=== PATIENT | female | born 1950 | race Caucasian/White ===

== ENCOUNTER 2016-11-20 09:15 | Emergency (ER) | payer MEDICARE, MEDICAID ==
[2016-11-20 09:26] VITALS: BP 117/85
[2016-11-20] MEDS ORDERED: NORMAL SALINE 1,000 ML in NORMAL SALINE 1,000 ML IV ONE (09:55)
[2016-11-20] MEDS ORDERED: ALBUTEROL SULFATE/IPRATROPIUM 3 ML NEBU IH ONE ×2 (09:55→10:25)
[2016-11-20] MEDS ORDERED: KETOROLAC TROMETHAMINE 30 MG/ML VIAL IV ONE (09:55)
[2016-11-20] MEDS ORDERED: METHYLPREDNISOLONE SOD SUCC/PF 40 MG/ML VIAL IV ONE (09:55)
[2016-11-20 10:16] LABS: Mean Cell Volume 86.9 fl (78-100); Mean Corpuscular Hgb Conc 33.3 g/dl (32-36); Mean Platelet Volume 8.2 fl (6.0-9.5); Neutrophil # 4.7 K/mm3 (1.3-6.0); Neutrophil % 67.2 % (42-75.0); Platelet Count 486 K/mm3 (150-450); Red Blood Count 5.18 M/mm3 (4.2-5.4); Red Cell Distribution Width 12.7 % (11.5-14.0)
--- NOTE | 2016-11-20 10:16 | ERNOTE ---
Medical Problem HPI - Narrative Date of Service: 11/20/16 - General Chief Complaint: General Assessment Time Seen by Provider: 11/20/16 09:48 Source: patient - Immun/Allergies/Home Medications Immunizations: IMMUNIZATION HX History of Influenza Vaccine Yes Allergies/Adverse Reactions: Allergies Penicillins Allergy (Severe, Verified 11/20/16 09:26) Swelling of Tongue and throat latex Adverse Reaction (Mild, Verified 11/20/16 09:26) rash morphine Adverse Reaction (Mild, Verified 11/20/16 09:26) does not work cat gut sutures Adverse Reaction (Mild, Uncoded 11/20/16 09:26) abcess novacaine Adverse Reaction (Mild, Uncoded 11/20/16 09:26) does not work Home Medications: HOME MEDICATIONS Aspirin [Aspirin Enteric Coated] 81 mg PO DAILY 02/18/14 [Last Taken Unknown] Cyclobenzaprine HCl [Flexeril] 10 mg PO BID 02/18/14 [Last Taken Unknown] Tiotropium [place] [Spiriva] 1 cap IH DAILY 02/18/14 [Last Taken Unknown] Tramadol HCl [Ultram] 100 mg PO Q4H PRN 02/18/14 [Last Taken Unknown] Blood Sugar Diagnostic, Drum [Accu-Chek Compact] 1 each MC DAILY 10/17/15 [Last Taken Unknown] Calcium Carbonate/Vitamin D3 [Calcium 600 + Vit D 400 Tablet] 1 each PO DAILY [Last Taken Unknown] Fluticasone/Salmeterol [Advair 500-50 Diskus] 1 puff IH BID 10/17/15 [Last Taken Unknown] Levothyroxine Sodium [Synthroid] 50 mcg PO DAILY 10/17/15 [Last Taken Unknown] Montelukast Sodium [Singulair] 10 mg PO DAILY 10/17/15 [Last Taken Unknown] Nabumetone 750 mg PO BID 10/17/15 [Last Taken Unknown] Omeprazole [Prilosec] 40 mg PO DAILY 10/17/15 [Last Taken Unknown] metFORMIN HCL [Glucophage] 500 mg PO BIDWM 10/17/15 [Last Taken Unknown] Doxycycline Monohydrate 100 mg PO BID #20 tablet 11/20/16 [Last Taken Unknown] - History of Present History Narrative: Pt complains of general malaise. She has been fighting a tooth infection and she feels it is wearing her down. Pt has a chronic cough, but continues to smoke about a PPD of cigarettes. Timing: intermittent Severity: moderate Review of Systems - Review of Systems Constitutional: Present: malaise EYE: Present: no symptoms reported ENT: Present: other - chronic lower molar pain Respiratory: Present: cough, wheezing Cardiology: Present: no symptoms reported Gastrointestinal/Abdominal: Present: no symptoms reported Genitourinary: Present: no symptoms reported Musculoskeletal: Present: no symptoms reported Skin: Present: no symptoms reported Neurological: Present: no symptoms reported Endocrine: Present: no symptoms reported Hematologic/Lymphatic: Present: no symptoms reported Psych: Present: no symptoms reported - Patient's Past Medical History Patient History - Medical: Diabetes Type 2, GERD, Headache, Hypothyroidism, Osteoarthritis, Other Patient History - Cardiac/Respiratory: COPD Patient History - Cancer: No Hx of Cancer Patient History - Surgical Procedures: Appendectomy, Colonoscopy, EGD, Hysterectomy, T & A, Other - Social History Living Situations: home Smoking Status: Current every day smoker Alcohol Use: none Drug Use: other Physical Exam - Physical Exam General Appearance: Present: wd/wn, alert, mild distress Eye Exam: Normal inspection: bilateral, PERRL: bilateral Ears, Nose, Throat: Present: hearing grossly normal, normal pharynx, other - lower molar edema and tenderness Neck: Present: normal inspection, nontender Respiratory: Present: no accessory muscle use, chest nontender, wheezing, other - fine coarse breath sounds throughout Cardiovascular/Chest: Present: regular rate, rhythm, no murmur, normal peripheral pulses Gastrointestinal/Abdominal: Present: normal bowel sounds, nontender, nondistended, soft, no organomegaly Rectal Exam: Present: deferred Back Exam: Present: normal inspection, normal range of motion Extremity Exam: Present: normal inspection, non-tender, no edema, normal range of motion Neurological Exam: Present: alert, oriented, normal mood/affect Skin Exam: Present: normal color, warm/dry Lymphatic Exam: Present: no adenopathy ED Progress - Results and Orders Patient's Lab Results:: I have reviewed the patient's lab results. - Vital Signs Patient's Vital Signs:: I have reviewed the patient's vital signs. Vital Signs: Vital Signs 11/20/16 09:20 Temperature 36.3 C L Pulse Rate 77 Respiratory 12 Rate Blood Pressure 117/85 O2 Sat by Pulse 97 Oximetry - X-Ray X-Ray #1 X-Ray: chest Interpretation: Reviewed by me - Progress/Reassessment Chief Complaint: General Assessment Progress:: Improved - Transfer of Care Expected Disposition: Discharge Plan - Plan Plan: Pt may need to consider stopping smoking, but she does not feel that she can. We talked about smoking cessation and she declines at this time. Departure - Departure Clinical Impression: COPD (chronic obstructive pulmonary disease), Diabetes, Nicotine addiction Instructions: Chronic Obstructive Pulmonary Disease, [id number], Smoking Cessation, Tips for Success, [id number], Type 2 Diabetes Mellitus, Adult, Easy -to-Read Referrals: Collin Randall MD [Primary Care Provider] - Prescriptions: Doxycycline Monohydrate 100 mg PO BID #20 tablet
[2016-11-20 10:24] LABS: ALT 16 U/L (19-67); AST 7 U/L (0-48); Albumin * 3.9 gm/dl (3.4-5.0); Alkaline Phosphatase * 57 U/L (50-170); Anion Gap 17.3 mmol/L (6.8-13.8); Bilirubin, Total 0.4 mg/dL (0.0-1.1); Blood Urea Nitrogen 16 mg/dL (3-23); Ca. Corrected For Albumin 9.2 mg/dL (8.4-10.2); Calcium * 9.4 mg/dL (7.9-10.9); Carbon Dioxide 22.8 mmol/L (24-32.6); Chloride 103 mmol/L (97-106); Glucose * 127 mg/dL (70-110); Magnesium 2.1 mg/dL (1.2-2.8); Potassium 4.1 mmol/L (3.4-4.6); Sodium 139 mmol/L (132-142); Total Protein 7.2 gm/dL (6.2-8.2)
[2016-11-20] MEDS ORDERED: KETOROLAC TROMETHAMINE 30 MG/ML VIAL ONE (10:25)
[2016-11-20] MEDS ORDERED: METHYLPREDNISOLONE SOD SUCC/PF 40 MG/ML VIAL ONE (10:25)
[2016-11-20 10:34] LABS: Urine Bilirubin Negative (NEGATIVE); Urine Blood Negative /ul (NEGATIVE); Urine Ketone Negative (NEGATIVE); Urine Nitrite Negative (NEGATIVE); Urine Protein Negative (NEGATIVE); Urine Urobilinogen Normal (NORMAL); Urine pH 5.5 pH (5.0-7.0)
[2016-11-20 10:44] LABS: Urine Appearance Clear; Urine Bacteria None Seen; Urine Color Yellow; Urine RBC None Seen /hpf (0-5); Urine WBC None Seen /hpf (0-5)
== END 2016-11-20 12:23 | disposition home or self-care (01) ==
LOC: ER 09:15
DX: J44.9 Chronic obstructive pulmonary disease, unspecified (principal); F17.210 Nicotine dependence, cigarettes, uncomplicated; E11.9 Type 2 diabetes mellitus without complications; Z90.710 Acquired absence of both cervix and uterus; K21.9 Gastro-esophageal reflux disease without esophagitis; E03.9 Hypothyroidism, unspecified; Z79.4 Long term (current) use of insulin

== ENCOUNTER 2017-04-08 01:23 | Observation (INO) | payer MEDICARE, MEDICAID ==
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
[2017-04-08 01:56] LABS: Hematocrit 40.1 % (37.0-47.0); Hemoglobin 13.5 gm/dL (12.5-16.0); Mean Cell Volume 87.4 fl (78-100); Mean Corpuscular Hemoglobin 29.4 pg (27-31); Mean Corpuscular Hgb Conc 33.7 g/dl (32-36); Mean Platelet Volume 8.2 fl (6.0-9.5); Neutrophil # 14.9 K/mm3 (1.3-6.0); Platelet Count 314 K/mm3 (150-450); Red Blood Count 4.59 M/mm3 (4.2-5.4); Red Cell Distribution Width 12.9 % (11.5-14.0); White Blood Count 17.7 K/mm3 (4.0-10.5)
--- OUTSIDE RECORDS SUMMARY | 2017-04-08 02:01 | XMS REPORT | Continuity of Care Document ---
:1950 Author Organization [facility] ([facility]) [place] [address] Phone [phone] Care Team Providers Name Role Phone ShoReilly Primary Care Provider [phone] Source Comments This disclosure is being made pursuant to the Care Everywhere program, applicable federal and state laws, and may not contain all informaitonavailable regarding this patient.[facility] ([facility]) Active Allergies and Adverse Reactions Allergen Noted Date Severity Reactions Comments Adhesive 04/27/2013 Urticaria (Hives),Pruritus Morphine 03/26/2012 OTHER Doesn't work Penicillins 02/28/2012 Angioedema Procaine 06/30/2012 OTHER NOVOCAIN --Does not work Water 06/30/2012 Nausea & Vomiting Patient can not ingest it - hospitalized- throwing up blood Current Medications Prescription Sig. Disp. Refills Start Date End Date Status MULTIVITAMIN PO Take 1 Tab by mouth Active daily. aspirin 81 mg EC Take 81 mg by mouth Active tablet daily. tiotropium Use 1 Cap by 90 Cap 3 07/28/2012 Active (SPIRIVA) 18 mcg inhalation daily. inhalation capsule Indications: PULMONARY EMPHYSEMA albuterol 2.5 mg/3 Use 3 mL by inhalation 150 mL 2 11/09/2012 Active mL inhalation every 6 hours as solution needed. Indications: bronchospasm fluticasone-salmet Use 1 Puff by 3 Inhaler 3 11/26/2012 Active zelda (ADVAIR inhalation 2 times 500-50) inhaler daily. Indications: BRONCHIAL ASTHMA albuterol 90 Use 2 Puffs by 2 Inhaler 2 03/23/2013 Active mcg/Actuation inhalation every 6 inhaler hours as needed. Indications: COPD omeprazole 40 mg Take 1 Cap by mouth 60 Cap 2 03/23/2013 Active extended release Every morning. capsule Indications: GASTROESOPHAGEAL REFLUX pravastatin 20 mg Take 1 Tab by mouth 60 Tab 1 03/23/2013 Active tablet every evening. Indications: MIXED HYPERLIPIDEMIA traMADol 50 mg Take 1 Tab by mouth 3 90 Tab 3 03/23/2013 Active tablet times daily as needed. Indications: PAIN Active Problems Problem Noted Date Liver lesion 03/24/2013 Dysphonia 03/24/2013 Smoking 03/24/2013 Thyroid nodule 03/24/2013 Adrenal nodule 03/24/2013 Abnormal mammogram 01/31/2013 Health counseling 06/10/2012 Dysarthria 05/03/2012 Hyperlipidemia 03/08/2012 Prediabetes 03/08/2012 CKD (chronic kidney disease) 03/08/2012 Cold thyroid nodule 02/29/2012 Overview: Benign FNA 04/2012. Due for repeat U/S 04/2013. Hemoptysis 02/29/2012 Adrenal mass 02/29/2012 Dizziness 02/29/2012 COPD (chronic obstructive pulmonary disease) 02/29/2012 Headache(784.0) 02/29/2012 Chronic cough 02/29/2012 GERD (gastroesophageal reflux disease) 02/29/2012 Neck pain 02/29/2012 Dysphagia 02/29/2012 RUQ pain 02/29/2012 Tremor 02/29/2012 Resolved Problems Problem Noted Date Resolved Date Dysphonia 02/29/2012 05/03/2012 Immunizations Name Dates Previously Given Next Due Influenza, unspecified 08/10/2011 Pneumococcal Polysaccharide, PPSV23 (Pneumovax 23) 10/15/2012 Pneumococcal, unspecified 11/10/1996 Social History Tobacco Use Types Packs/Day Years Used Date Current Every Day Smoker Cigarettes 1 35 Smokeless Tobacco: Never Used Tobacco Cessation:Ready to Quit: Yes; Counseling Given: Yes Comments: Alcohol Use Drinks/Week oz/Week Comments No Last Filed Vital Signs Vital Sign Reading Time Taken Blood Pressure 129/75 04/27/2013 1:53 PM CDT Pulse 97 04/27/2013 1:53 PM CDT Temperature 36.9 C (98.4 F) 04/27/2013 1:53 PM CDT Respiratory Rate 18 12/25/2012 9:40 AM ACCOUNT SERVICES ANALYST Height 1.6 m (5' 2.99") 04/27/2013 1:53 PM CDT Weight 82.373 kg (181 lb 9.6 oz) 04/27/2013 1:53 PM CDT Body Mass Index 32.18 04/27/2013 1:53 PM CDT Oxygen Saturation 95% 10/15/2012 12:58 PM ACCOUNT SERVICES ANALYST Plan of Care Patient Goal Type Goal Diet Eat more fruits and vegetables Lifestyle Quit smoking / using tobacco Health Maintenance Due Date Last Done Comments HCV Screening 1950 Hepatitis B Vaccine (1 of 3 - 1950 Primary Series) Td Vaccine 1968 Colonoscopy 04/27/2000 FOBT Colon Cancer Screening 2000 Sigmoidoscopy Colon Cancer 2000 Screening Zoster Vaccine 2010 Mammogram 12/25/2013 12/25/2012, 11/09/2012 Osteoporosis Screening (DXA 2015 Bone Density) Pneumococcal Vaccine (1 of 2 2015 10/15/2012 - PCV13) Influenza Vaccine: Seasonal 06/10/2016 08/10/2011 (#1) Lipid Disorder Screening 12/25/2017 12/25/2012, 02/28/2012 Tdap Vaccine Addressed 05/04/2012 Overridden with the (Postponed) intention of not completing the topic Results from Last 3 Months Not on file
--- OUTSIDE RECORDS SUMMARY | 2017-04-08 02:01 | XMS REPORT | Continuity of Care Document ---
:1950 Author Organization [facility] [place] [address] Care Team Providers Name Role Phone Jarrett Gross Kit Primary Care Provider [phone] Source Comments This disclosure is being made pursuant to the [employer] program and maynot contain all information available regarding this patient.[facility] Active Allergies and Adverse Reactions Not on File Current Medications Be aware that medications may not be up to date as of this document. Alwaysverify current medications with the patient. Not on file Active Problems Not on file Social History Tobacco Use Types Packs/Day Years Used Date Never Assessed Plan of Care Health Maintenance Due Date Last Done Comments Tetanus/Pertussis (1 - Tdap) 1969 Mammogram 1990 Colonoscopy 2000 Well Adult Visit 2000 Zoster Vaccine 60+ 2010 Bone Density 2015 Pneumococcal Low/Medium Risk 65+ (1 of 2 - PCV13) 2015 Retired-INFLUENZA VACCINE 07/11/2015 Results from Last 3 Months Not on file
[2017-04-08 02:27] LABS: Albumin * 3.2 gm/dl (3.4-5.0); Anion Gap 16.8 mmol/L (6.8-13.8); BUN/Creatinine Ratio 11.6 (9.0-21.6); Bilirubin, Total 0.6 mg/dL (0.0-1.1); Ca. Corrected For Albumin 8.8 mg/dL (8.4-10.2); Calcium * 8.5 mg/dL (7.9-10.9); Carbon Dioxide 24.5 mmol/L (24-32.6); Potassium 3.3 mmol/L (3.4-4.6); Total Protein 6.9 gm/dL (6.2-8.2)
--- OUTSIDE RECORDS SUMMARY | 2017-04-08 03:31 | XMS REPORT | Continuity of Care Document ---
:1950 Author Organization [facility] [place] [address] Care Team Providers Name Role Phone Jarrett Gross Kit Primary Care Provider [phone] Source Comments This disclosure is being made pursuant to the [employer] program and maynot contain all information available regarding this patient.[facility] Active Allergies and Adverse Reactions Not on [...]
--- OUTSIDE RECORDS SUMMARY | 2017-04-08 03:32 | XMS REPORT | Continuity of Care Document ---
:1950 Author Organization [facility] ([facility]) Address [place] [address] Phone [phone] Care Team Providers Name Role Phone ShoReilly Primary Care Provider [phone] Source Comments This disclosure is being made pursuant to the Care Everywhere program, applicable federal and state laws, and may not contain all informaitonavailable regarding this patient.[facility] ([facility]) Active Allergies and Adverse Reactions Allergen [...] CDT Respiratory Rate 18 12/25/2012 9:40 AM PENSION FUND MANAGER Height 1.6 m (5' 2.99") 04/27/2013 1:53 PM CDT Weight 82.373 kg (181 lb 9.6 oz) 04/27/2013 1:53 PM CDT Body Mass Index 32.18 04/27/2013 1:53 PM CDT Oxygen Saturation 95% 10/15/2012 12:58 PM PENSION FUND MANAGER Plan of Care Patient Goal Type Goal [...]
[2017-04-08] MEDS ORDERED: METHYLPREDNISOLONE SOD SUCC/PF 125 MG/2 ML VIAL IV ONE (03:34)
[2017-04-08] MEDS ORDERED: METHYLPREDNISOLONE SOD SUCC/PF 125 MG/2 ML VIAL ONE (03:40)
[2017-04-08] MEDS ORDERED: LEVOFLOXACIN/D5W 500 MG/100 ML BAG IV SCH (03:45)
[2017-04-08] MEDS ORDERED: ALBUTEROL SULFATE/IPRATROPIUM 3 ML NEBU IH PRN ×2 (04:43→05:31)
[2017-04-08] MEDS ORDERED: POTASSIUM CHLORIDE 20 MEQ TABLET.SA PO ONE (04:49)
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
[2017-04-08] MEDS ORDERED: ALBUTEROL SULFATE/IPRATROPIUM 3 ML NEBU IH SCH (05:45)
[2017-04-08] MEDS ORDERED: PANTOPRAZOLE SODIUM 40 MG TABLET.EC PO SCH (07:00)
[2017-04-08] MEDS: ALBUTEROL SULFATE/IPRATROPIUM 3 ML NEBU IH SCH ×3 (07:50→14:33)
[2017-04-08] MEDS ORDERED: predniSONE 20 MG TABLET PO SCH (09:00)
[2017-04-08] MEDS ORDERED: TIOTROPIUM BROMIDE 5 CAP INHALER IH SCH (09:00)
[2017-04-08] MEDS ORDERED: CALCIUM CARBONATE/VITAMIN D3 1 TAB TABLET PO SCH (09:00)
[2017-04-08] MEDS ORDERED: FLUTICASONE/SALMETEROL 14 PUFF DISK.W.DEV IH SCH (09:00)
[2017-04-08] MEDS ORDERED: CYCLOBENZAPRINE HCL 10 MG TABLET PO SCH (09:00)
[2017-04-08] MEDS ORDERED: NABUMETONE 500 MG TABLET PO SCH (09:00)
[2017-04-08] MEDS ORDERED: ASPIRIN 81 MG TABLET.DR PO SCH (09:00)
[2017-04-08 16:09] VITALS: BP 105/59
--- NOTE | 2017-04-08 16:22 | DS ---
(1) Acute respiratory failure with hypoxia Problem: Acute (2) Acute exacerbation of chronic obstructive pulmonary disease (COPD) Problem: Acute Description of Stay: Dariana is a 67 yo female admitted with acute respiratory failure with 87% on room air secondary to COPD exacerbation. She was admitted on levaquin, prednisone, albuterol nebulizers, and was quickly weaned from oxygen. She was admitted to observation and quickly improved. She was discharged to home the following day. Procedures Performed: none Discharge Disposition: Home self care Disposition: Home self-care Condition: Fair Discharge Activity: Activity as tolerated Discharge Diet: Consistent carbs Referrals: Collin Randall MD [Primary Care Provider] - One Week Problem Oriented Discharge Instructions to Patient/Family: Chronic Obstructive Pulmonary Disease Exacerbation, [id number], Smoking Cessation, Tips for Success, [id number] Additional Patient Instructions (free text): Take 4 tabs of home prednisone (10mg tabs) 40mg daily x 5 days. Prescriptions (Any new or edited meds): Azithromycin 250 mg PO DAILY #6 tablet Complete Home Medications List: Complete Home Medication List: Aspirin [Aspirin EC] 81 mg PO DAILY 04/08/17 Azithromycin 250 mg PO DAILY #6 tablet 04/08/17 Calcium Carb, Citrate/Vit D3 [Calcium + D3 ER Tablet] 1 each PO DAILY 04/08/17 Cyclobenzaprine HCl 10 mg PO BID 04/08/17 Fluticasone/Salmeterol [Advair 500-50 Diskus] 1 puff IH BID 04/08/17 Montelukast Sodium [Singulair] 10 mg PO HS 04/08/17 Nabumetone 750 mg PO BID 04/08/17 Omeprazole 40 mg PO DAILY 04/08/17 Tiotropium [place] [Spiriva] 1 cap IH DAILY 04/08/17 metFORMIN HCL [Metformin HCl ER] 500 mg PO BID 04/08/17
[2017-04-08] MEDS ORDERED: MONTELUKAST SODIUM 10 MG TABLET PO SCH (21:00)
== END 2017-04-08 16:48 | disposition home or self-care (01) ==
LOC: ER 01:23 → INTOOBSV 03:24 → SCU 03:24 → UNDODISIN 16:48
PROVIDERS: ADMIT Nurse Practitioner Gerontology; ATTEND Family Medicine
DX: J96.01 Acute respiratory failure with hypoxia (principal); F17.210 Nicotine dependence, cigarettes, uncomplicated; J44.1 Chronic obstructive pulmonary disease with (acute) exacerbation; E11.9 Type 2 diabetes mellitus without complications; E03.9 Hypothyroidism, unspecified; K21.9 Gastro-esophageal reflux disease without esophagitis; I10 Essential (primary) hypertension